=== PATIENT | female | born 1975 | race Caucasian/White ===

== ENCOUNTER → 2017-10-02 | Outpatient (CLI) | payer BC ==
[~2017-10-02] MED LIST: LORTAB 5/500 501 TAB PO; MVI
== END ==
LOC: MC.RAD 12:46
DX: Z12.31 Encounter for screening mammogram for malignant neoplasm of breast (principal)

== ENCOUNTER → 2018-12-03 | Outpatient (CLI) | payer BC | LOC: MC.RAD 13:32 | DX: Z12.31 Encounter for screening mammogram for malignant neoplasm of breast (principal) ==

== ENCOUNTER → 2021-03-01 | Outpatient (CLI) | payer BC | LOC: MC.RAD 14:07 | DX: Z12.31 Encounter for screening mammogram for malignant neoplasm of breast (principal) ==

== ENCOUNTER → 2024-04-01 | Outpatient (CLI) | payer BC ==
[2006-04-20 07:09] VITALS: TEMP 97.9
== END ==
LOC: MC.RAD 14:03
DX: Z12.31 Encounter for screening mammogram for malignant neoplasm of breast (principal)